=== PATIENT | female | born 1990 | race Caucasian/White ===

== ENCOUNTER 2017-02-28 19:37 | Emergency (ER) | payer MEDICARE, OTHER ==
[~2017-02-28] VITALS: Ht 147.3 cm; Wt 68.0 kg
[~2017-02-28 19:37] MED LIST: ADVIL COLD-SIN1 EACH PO; ALLER-TEC10 MG PO; MULTI VITAMIN1 EACH PO
[2017-02-28] MEDS ORDERED: CEPHALEXIN500 MG PO (21:16)
== END 2017-02-28 21:43 | disposition home or self-care (01) ==
LOC: ED 19:37
DX: J20.9 Acute bronchitis, unspecified (principal); Z87.01 Personal history of pneumonia (recurrent); Z88.8 Allergy status to other drugs, medicaments and biological substances; Z79.899 Other long term (current) drug therapy
CPT/HCPCS: 71020; 87081; 87147; 87880; 99283